=== PATIENT | male | born 1945 | race Caucasian/White ===

== ENCOUNTER 2018-05-02 19:39 | Emergency (ER) | payer MEDICARE, OTHER | END 2018-05-02 21:10 | disposition home or self-care (01) | LOC: BURERS 19:39 | DX: A08.4 Viral intestinal infection, unspecified (principal); E78.5 Hyperlipidemia, unspecified | CPT/HCPCS: 99283 ==

== ENCOUNTER 2021-02-06 17:41 | Emergency (ER) | payer MEDICARE, OTHER ==
[2021-02-07 13:11] LABS: SARS-CoV-2 PCR by NAA DETECTED (NotDetected)
== END 2021-02-06 18:49 | disposition home or self-care (01) ==
LOC: BURERS 17:41
DX: U07.1 COVID-19 (principal); B34.9 Viral infection, unspecified; E78.5 Hyperlipidemia, unspecified; F17.290 Nicotine dependence, other tobacco product, uncomplicated
CPT/HCPCS: 87804; 99283; U0003; U0005